=== PATIENT | male | born 1955 ===

== ENCOUNTER → 2024-06-09 08:58 | Outpatient (CLI) | payer OTHER | END | disposition home or self-care (01) | LOC: LAB 08:58 | PROVIDERS: ATTEND Urology | DX: R97.20 Elevated prostate specific antigen [PSA] (principal) ==

== ENCOUNTER 2024-07-22 07:01 | Outpatient (CLI) | payer OTHER | END 2024-07-22 07:07 | disposition home or self-care (01) | LOC: SONOGRAMA 07:01 | PROVIDERS: ATTEND Urology | DX: N40.1 Benign prostatic hyperplasia with lower urinary tract symptoms (principal) ==